=== PATIENT | male | born 1980 | race African-American/Black ===

== ENCOUNTER 2025-03-31 08:51 | Day surgery (SDC) | payer BC, OTHER ==
[2025-03-30 11:50] VITALS: BMI 26.4
[2025-03-31 10:47] VITALS: PULSE 68; RESP 20
[2025-03-31 10:55] VITALS: BP 109/60; TEMP 97.8
== END 2025-03-31 11:05 | disposition home or self-care (01) ==
LOC: FASU-ENDO 08:51
PROVIDERS: ATTEND Internal Medicine Gastroenterology
PROC: 0DBN8ZX Excision of Sigmoid Colon, Via Natural or Artificial Opening Endoscopic, Diagnostic (ICD-10-PCS; principal; 2025-03-31 09:58)
DX: Z12.11 Encounter for screening for malignant neoplasm of colon (principal); K63.5 Polyp of colon; K64.8 Other hemorrhoids
CPT/HCPCS: 88305-TC